=== PATIENT | male | born 1950 | race Two or more races ===

== ENCOUNTER 2023-10-24 11:12 | Emergency (ER) | payer MEDICAID ==
[~2023-10-24] VITALS: Ht 180.3 cm; Wt 68.2 kg
[~2023-10-24 11:12] MED LIST: CEFT1VIA65 IV; LEVO750T68 PO; TAMS0.4C94 PO; [UNRECOGNIZED DRUG - CODE] IV
[2023-10-24 11:18] VITALS: TEMP 98.3
[2023-10-24 15:15] LABS: BASOPHILS % (AUTO) 1.4 % (0.0-2.0); EOSINOPHILS % (AUTO) 0 % (1.0-6.0); HEMATOCRIT 38.1 % (41-53); HEMOGLOBIN 12.2 g/dL (13.5-17.5); LYMPHOCYTES # (AUTO) 0.5 K/uL (1.0-4.8); LYMPHOCYTES % (AUTO) 12.2 % (22.0-44.0); MEAN CORPUSCULAR HEMOGLOBIN 26.4 pg (26.0-34.0); MEAN CORPUSCULAR VOLUME 83 fL (80-100); MONOCYTES # (AUTO) 0.5 K/uL (0.1-1.0); NEUTROPHILS # (AUTO) 3.3 K/uL (1.8-7.7); NEUTROPHILS % (AUTO) 74.4 % (40.0-70.0); PLATELET COUNT (AUTO) 268 K/uL (150-450); RED BLOOD CELL COUNT(AUTO) 4.62 MIL/uL (4.50-5.90); RED CELL DISTRIBUTION WIDTH 15.8 % (11.5-14.5); WHITE BLOOD COUNT (AUTO) 4.4 K/uL (4.5-11.0)
[2023-10-24 15:53] LABS: ALBUMIN 2.6 g/dL (3.4-5.0); BILIRUBIN,TOTAL 0.3 mg/dL (0.1-1.0); CALCIUM, TOTAL 7.9 mg/dL (8.8-10.5); CREATININE 2.18 mg/dL (0.60-1.30); TOTAL PROTEIN, SERUM 6.9 g/dL (6.4-8.2)
[2023-10-24] MEDS: POTASSIUM CHLORIDE 20 MEQ ER TABLET PO ONE (16:27)
[2023-10-24 21:22] VITALS: BP 150/89; PULSE 89; RESP 16
== END 2023-10-24 21:40 | disposition home or self-care (01) ==
LOC: EMS 11:12
DX: Z95.9 Presence of cardiac and vascular implant and graft, unspecified (principal); Z98.890 Other specified postprocedural states
CPT/HCPCS: 36245; 36569; 71045; 76937; 80053; 85025; 99284; 99285; 36415-L1; 36415-TC